=== PATIENT | male | born 1950 | race Caucasian/White ===

== ENCOUNTER → 2018-02-19 | Outpatient (CLI) | payer MEDICARE, BC ==
--- NOTE | 2018-02-19 09:24 | US ---
EXAMINATION TYPE: US abdomen complete DATE OF EXAM: 02/19/2018 COMPARISON: NONE CLINICAL HISTORY: Leukocytopenia D72.819. EXAM MEASUREMENTS: Liver Length: 11.3 cm Gallbladder Wall: 0.3 cm CBD: 0.4 cm Spleen: 13.0 cm Right Kidney: 11.6 x 5.9 x 6.6 cm Left Kidney: 11.3 x 6.2 x 6.0 cm Pancreas: not visualized due to bowel gas Liver: wnl Gallbladder: No stones seen Evidence for sonographic Barajas's sign: No CBD: wnl Spleen: upper limits of normal Right Kidney: No hydronephrosis or masses seen Left Kidney: cyst lower pole measures 1.2 x 1.1 x 1.0 cm Upper IVC: wnl Abd Aorta: wnl The liver is homogenous. The intrahepatic portion of the IVC and proximal abdominal aorta are within normal limits. There is no evidence of cholelithiasis. Common bile duct is unremarkable. The visu alized portions of the pancreas are homogenous. The spleen is unremarkable. Kidneys are symmetric a nd free of hydronephrosis. IMPRESSION: 1. Simple appearing left renal cyst. 2. Prominent size of the spleen approaching criteria for splenomegaly.
== END | disposition home or self-care (01) ==
LOC: RADUSWWP 07:16
PROVIDERS: ATTEND Internal Medicine Hematology & Oncology
DX: N28.1 Cyst of kidney, acquired (principal); D72.819 Decreased white blood cell count, unspecified; Z91.048 Other nonmedicinal substance allergy status
CPT/HCPCS: 76700

== ENCOUNTER → 2023-12-31 | Outpatient (CLI) | payer MEDICARE ==
--- NOTE | 2024-01-03 19:44 | MR ---
EXAMINATION TYPE: MR brain wo/w con DATE OF EXAM: 12/31/2023 COMPARISON: None HISTORY: Tremors CONTRAST: Performed utilizing 7.5 mL intravenous Gadavist gadolinium contrast. TECHNIQUE: Multiplanar, multiecho imaging on a 3.0 Georgie magnet is performed through the brain. Stud y is performed within 24 hours of arrival to the hospital. The craniovertebral junction is normal. The pituitary is normal. Optic chiasm appears normal. The r ight A1 segment may be hypoplastic. Widely patent anterior communicating artery is noted. Diffusion-weighted imaging is performed. No abnormal hyperintensity is present to suggest an acute i ntracranial infarct or acute ischemic change. There are scattered punctate areas of hyperintensity on T2 and Inversion Recovery weighted sequences which are non-specific but can be related to microvascular ischemic changes. Ventricles and sulci are appropriate for the patient age. Some minimal fluid may be within the right mastoid air cells. IMPRESSION: 1. No acute intracranial process.
== END | disposition home or self-care (01) ==
LOC: RADMRIMAIN 13:15
PROVIDERS: ATTEND Psychiatry & Neurology Neurology
DX: G25.2 Other specified forms of tremor (principal)
CPT/HCPCS: 70553; A9585

== ENCOUNTER → 2024-07-07 | Outpatient (CLI) | payer MEDICARE ==
--- NOTE | 2024-07-07 19:21 | CT ---
EXAMINATION TYPE: CT brain wo con CT DLP: 1207 mGycm, Automated exposure control for dose reduction was used. DATE OF EXAM: 07/07/2024 6:57 PM COMPARISON: MRI brain 12/31/2023.. CLINICAL INDICATION: Male, 74 years old with history of G25.0 Essential tremor, Essential tremors x6y rs. TECHNIQUE: Brain: Axial CT images of the brain were obtained with coronal and sagittal reformats created and rev iewed. Contrast used: None. Oral contrast used: None. FINDINGS: Brain: Extra-axial spaces: No abnormal extra-axial fluid collections. Ventricular system: Within normal limits Cerebral parenchyma: No acute intraparenchymal hemorrhage or mass effect. The dasilva-white junction is well differentiated. Cerebellum: Unremarkable. Mass effect: No evidence of midline shift. Intracranial vasculature: Atherosclerotic calcifications of the intracranial vessels. Soft tissues: Normal. Calvarium/osseous structures: No depressed skull fracture. Paranasal sinuses and mastoid air cells: Mild scattered paranasal sinus disease. Visualized orbits: Orbital contents are intact. IMPRESSION: No acute intracranial process. [facility], , 07/07/2024 7:19 PM
== END | disposition home or self-care (01) ==
LOC: RADCTMAIN 18:25
PROVIDERS: ATTEND Neurological Surgery
DX: G25.0 Essential tremor (principal)
CPT/HCPCS: 70450

== ENCOUNTER → 2024-10-02 | Outpatient (CLI) | payer MEDICARE ==
--- NOTE | 2024-10-02 09:18 | MR ---
EXAMINATION TYPE: MR cervical spine wo con DATE OF EXAM: 10/02/2024 9:02 AM COMPARISON: None. CLINICAL INDICATION: Male, 74 years old with history of M54.2 CERVICALGIA M47.812 M54.12, Neck pain/ stiffness, BUE tingling, S/P fall/head injury. TECHNIQUE: Multiplanar, multisequence images of the cervical spine were acquired without contrast. C2-C3: No evidence for degenerative disc disease. No disc bulge/herniation or protrusion. No Canal stenosis. Foramina are patent bilaterally. Mild degenerative disc disease. C3-C4: Severe degenerative disc disease with discogenic marrow changes. Grade 1 retrolisthesis. Poste rior disc osteophyte complex results in mild central stenosis. Facet arthropathy and uncovertebral tabitha int hypertrophy contribute to severe right and moderate left foraminal encroachment. C4-C5: Severe degenerative disc disease with discogenic marrow changes. There is a posterior disc ost eophyte complex resulting in moderate canal stenosis. Uncovertebral joint hypertrophy contributes to moderate to severe bilateral foraminal encroachment. Cannot exclude an area of abnormal signal in the posterior cervical spinal cord. C5-C6: Moderate to severe degenerative disc disease with broad-based disc protrusion. Mild central st enosis. Uncovertebral joint hypertrophy and facet arthropathy with moderate to severe right and left foraminal encroachment. C6-C7: Severe degenerative disc disease. Uncovertebral joint hypertrophy with mild left foraminal enc roachment. No canal stenosis or disc herniation. C7-T1: Mild degenerative disc disease. There is a tiny right paracentral disc bulge or protrusion. Ne ural foramina patent. No canal stenosis. Cervical segments are intact. Craniovertebral junction relationships are within normal limits. IMPRESSION: 1. Multilevel severe degenerative disc disease and multilevel canal stenosis extending from level C3- C7. 2. Cannot exclude a faint area of abnormal signal in the posterior spinal cord at level C4-C5. Could be on the basis of a myelitis or compressive myelopathy. Recommend postcontrast imaging. 3. Multilevel significant foraminal encroachment as discussed above. [facility], , 10/02/2024 9:15 AM
== END | disposition home or self-care (01) ==
LOC: RADMRIMAIN 08:19
PROVIDERS: ATTEND Student in an Organized Health Care Education/Training Program
DX: M50.123 Cervical disc disorder at C6-C7 level with radiculopathy (principal); M47.22 Other spondylosis with radiculopathy, cervical region
CPT/HCPCS: 72141

== ENCOUNTER → 2024-12-10 | Outpatient (CLI) | payer MEDICARE ==
--- NOTE | 2024-12-10 16:24 | US ---
EXAMINATION TYPE: US venous doppler duplex UE RT DATE OF EXAM: 12/10/2024 COMPARISON: NONE CLINICAL INDICATION: Male, 74 years old with history of R09.89 SUSPECTED DVT; No hx of DVT. Patient d oes not take blood thinners. Swelling and pain since November 10. Symptoms have improved a bit. TECHNIQUE: Grayscale, color Doppler and spectral Doppler imaging of the upper extremity. SIDE PERFORMED: Right arm VESSELS IMAGED: IJV Subclavian Vein Axilla Vein Brachial Vein(s) Radial Paired Veins Ulnar Paired Veins Cephalic Vein* Basilic Vein* (*superficial vessels) FINDINGS: Right Arm: Internal echoes seen within a superficial vein in the wrist. Unable to follow vein to orig in, but vessel is compressible in the upper forearm. Vessel does not compress completely or show colo r flow at the wrist. This is at patient's area of concern. No evidence of DVT. IMPRESSION: 1. No evidence of deep venous thrombosis. 2. Superficial venous thrombosis within the wrist. [facility], , 12/10/2024 4:22 PM
== END | disposition home or self-care (01) ==
LOC: RADUSWWP 15:08
PROVIDERS: ATTEND Internal Medicine
DX: I82.611 Acute embolism and thrombosis of superficial veins of right upper extremity (principal); R09.89 Other specified symptoms and signs involving the circulatory and respiratory systems

== ENCOUNTER → 2025-03-30 | Outpatient (CLI) | payer MEDICARE ==
--- NOTE | 2025-03-30 11:53 | XR ---
EXAMINATION TYPE: XR chest 2V DATE OF EXAM: 03/30/2025 11:07 AM COMPARISON: None. CLINICAL INDICATION: Male, 74 years old with history of R05.8 OTHER SPECIFIED COUGH, TECHNIQUE: XR chest 2V view(s) obtained. FINDINGS: The heart size is normal. The pulmonary vasculature is normal. The lungs are clear. IMPRESSION: 1. No acute pulmonary process. [facility], , 03/30/2025 11:51 AM
== END | disposition home or self-care (01) ==
LOC: RADXRMAIN 10:54
PROVIDERS: ATTEND Internal Medicine
DX: R05.8 Other specified cough (principal)
CPT/HCPCS: 71046